=== PATIENT | male | born 1955 | race Caucasian/White ===

== ENCOUNTER → 2017-02-26 | Outpatient (REF) | payer OTHER | LOC: M SFHCLERA 15:12 | DX: J02.9 Acute pharyngitis, unspecified (principal) ==

== ENCOUNTER → 2017-07-15 | Outpatient (REF) | payer OTHER | LOC: M LAB REF 12:46 | DX: D48.5 Neoplasm of uncertain behavior of skin (principal) ==

== ENCOUNTER → 2017-07-26 | Outpatient (CLI) | payer BC, OTHER | LOC: M RAD 07:43 | DX: R91.8 Other nonspecific abnormal finding of lung field (principal) | CPT/HCPCS: 71250 ==

== ENCOUNTER → 2018-07-25 | Outpatient (CLI) | payer BC, OTHER ==
--- NOTE | 2018-07-26 09:58 | REP ---
Clinical: Follow up abnormal lung findings. Technique: Axial noncontrast images from the thoracic inlet to the upper abdomen with coronal and sagittal re-formations. Comparison: 07/26/2017. Findings: 10 mm left upper lobe pulmonary nodule (image 24) remains stable. 8 mm medial left upper lobe pulmonary nodule (image 26) remains stable. 3 mm left lower lobe pulmonary nodule (image 45) remains stable. 4 mm left lower lobe pulmonary nodule (image 53) remains stable. 5 mm right upper lobe pulmonary nodule (image 57) remains stable. 9 mm right lower lobe pulmonary nodule (image 59) remains stable. 3 mm right lower lobe density consistent with scar (image 49) remains stable. 5 mm noncalcified nodule in the left lower lobe (image 58) and 8 mm noncalcified nodule in the medial left lower lobe just above the diaphragm (image 69) were not previously mentioned above remains stable as well. No further new areas of consolidation, nodule or mass lesion are appreciated. No pleural effusion. No pneumothorax. No adenopathy. Tracheobronchial tree is patent. Aneurysmal dilatation to the ascending thoracic aorta measuring 4.6 cm maximal diameter along with descending thoracic aorta measuring 3.1 cm maximal diameter remains stable. Surrounding musculoskeletal structures are intact and without focal osseous abnormality. Limited upper abdomen demonstrates normal bilateral adrenal glands along with stable 2.7 cm left renal cyst. Impression: 1. 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 No associated adenopathy and no new nodule or mass lesion is appreciated. Consider 1 year follow-up to confirm benignity over 2 years. 2. Stable aneurysmal dilatation to the thoracic aorta. 3. Stable left renal hypodensity compatible with cyst. Electronically Signed by Crow Vigil MD 07/26/2018 09:50 A
== END ==
LOC: M RAD 07:55
PROVIDERS: ATTEND Physician Assistant
DX: R91.8 Other nonspecific abnormal finding of lung field (principal); N28.89 Other specified disorders of kidney and ureter; I71.2 Thoracic aortic aneurysm, without rupture

== ENCOUNTER → 2018-08-29 | Outpatient (REF) | payer OTHER | LOC: M LABDRAW1 09:23 | PROVIDERS: ATTEND Physician Assistant | DX: M50.30 Other cervical disc degeneration, unspecified cervical region (principal) ==

== ENCOUNTER → 2020-08-01 | Outpatient (REF) | payer OTHER, BC, MEDICARE | LOC: M LAB REF 14:05 | PROVIDERS: ATTEND Physician Assistant | DX: D18.01 Hemangioma of skin and subcutaneous tissue (principal) ==

== ENCOUNTER → 2020-09-06 | Outpatient (CLI) | payer OTHER ==
--- NOTE | 2020-09-09 17:43 | REP ---
INDICATION: SPONDYLOSIS CERVICAL REGION. COMPARISON: 03/04/2015 [facility] radiology imaging. TECHNIQUE: Multiple sequences in the axial and sagittal planes. FINDINGS: There is no compression fracture or malalignment, with normal cervical lordosis. There is diffuse loss of water signal and disc degeneration. There is [id number] disc space narrowing at C4-5 and C5-6 with mild narrowing at C6-7, unchanged. There is no abnormal signal in the cervical spinal cord. No significant disc bulging or herniation at C2-3, with no spinal stenosis. At C3-4 there is mild diffuse disc bulging and uncovertebral spurring without spinal stenosis. There is moderate right-sided and mild left-sided foraminal narrowing. At C4-5 there is [id number] diffuse disc bulging and uncovertebral spurring. Moderate bilateral foraminal narrowing. There is moderate effacement of the thecal sac without cord compression. At C5-6 there is diffuse disc bulging and uncovertebral spurring. There is moderate right and severe left foraminal narrowing. There is minimal cord compression. At C6-7 there is diffuse disc bulging and uncovertebral spurring. There is moderate right-sided and severe left-sided foraminal narrowing. There is moderate effacement of the thecal sac without cord compression. IMPRESSION: Diffuse degenerative disc disease and spondylosis. Multilevel foraminal narrowing as discussed in detail above. The findings are similar to the prior exam. <Electronically signed by Gatito Lawson > 09/09/20 [id number]
== END ==
LOC: M PLAIMG 14:04
PROVIDERS: ATTEND Physician Assistant
DX: M47.812 Spondylosis without myelopathy or radiculopathy, cervical region (principal); M25.78 Osteophyte, vertebrae

== ENCOUNTER → 2020-10-09 | Outpatient (CLI) | payer OTHER ==
--- NOTE | 2020-10-09 10:45 | REP ---
INDICATION: OTHER CERVICAL DISC DEGENERATION AT C5-C6 LEVEL. COMPARISON: None. TECHNIQUE: AP, lateral, flexion/extension, bilateral oblique and open mouth views of the cervical spine. FINDINGS: Advanced multilevel degenerative changes include endplate sclerosis, osteophytosis, disc space narrowing, facet hypertrophy and foraminal narrowing. Alignment and lordosis maintained. No acute fracture/compression injury or subluxation. Open mouth view demonstrates normal C1-C2 articulation and odontoid process. IMPRESSION: Advanced multilevel degenerative spondylosis. <Electronically signed by Crow Vigil > 10/09/20 [id number]
== END ==
LOC: M LAB 10:19 → M RAD 10:19
PROVIDERS: ATTEND Physical Medicine & Rehabilitation
DX: M50.322 Other cervical disc degeneration at C5-C6 level (principal); M47.812 Spondylosis without myelopathy or radiculopathy, cervical region

== ENCOUNTER → 2021-03-06 | Outpatient (REF) | payer MEDICARE, BC, OTHER | LOC: M LAB REF 17:27 | PROVIDERS: ATTEND Nurse Practitioner Family | DX: D22.5 Melanocytic nevi of trunk (principal) | CPT/HCPCS: 11102; 17000; 17110; 88305; G0463 ==

== ENCOUNTER → 2021-12-02 | Outpatient (REF) | payer OTHER | LOC: M LAB REF 13:15 | PROVIDERS: ATTEND Physician Assistant | DX: M25.462 Effusion, left knee (principal) ==

== ENCOUNTER → 2022-08-03 | Outpatient (CLI) | payer OTHER, MEDICARE | LOC: M PLAIMG 08:49 | PROVIDERS: ATTEND Physician Assistant | DX: M50.31 Other cervical disc degeneration, high cervical region (principal); M50.322 Other cervical disc degeneration at C5-C6 level; M50.321 Other cervical disc degeneration at C4-C5 level; M48.02 Spinal stenosis, cervical region; M50.323 Other cervical disc degeneration at C6-C7 level ==